=== PATIENT | male | born 1990 | race African-American/Black ===

== ENCOUNTER 2017-12-01 15:43 | Emergency (ER) | payer SELFPAY ==
[~2017-12-01] VITALS: Ht 172.7 cm; Wt 70.0 kg
[2017-12-01] MEDS ORDERED: KEPP500 PO (15:50)
[2017-12-01] MEDS ORDERED: SODIUM CHLORIDE 0.9% 1,000 ML IV ONE (19:32)
[2017-12-01] MEDS ORDERED: LEVETIRACETAM 500MG PREMIX 100 ML IV ONE (19:45)
[2017-12-01 20:39] LABS: BASOPHILS % 0.3 % (0.0-2.0); EOSINOPHILS % 0.1 % (0.0-5.0); HEMATOCRIT. 38.1 % (42.0-52.0); HEMOGLOBIN. 12.3 g/dL (14.0-18.0); LYMPHOCYTES % 8.5 % (20.0-50.0); MEAN CORPUSCULAR HEMOGLOBIN 24.5 pg (28.0-32.0); MEAN CORPUSCULAR VOLUME 76.1 fL (80.0-94.0); MEAN PLATELET VOLUME 9.3 fl (7.4-10.4); MONOCYTES % 7.4 % (2.0-8.0); NEUTROPHILS % 83.7 % (40.0-76.0); PLATELET 192 x1000/uL (130-400); RED BLOOD CELL COUNT 5.01 mill/uL (4.7-6.1); RED CELL DISTRIBUTION WIDTH 15.5 % (11.6-14.6)
[2017-12-01 20:45] LABS: CHLORIDE 108 mEq/L (98-107)
[2017-12-01 20:47] LABS: INR 1.1; PROTHROMBIN TIME 11.6 sec (9.4-11.6)
[2017-12-01 20:49] LABS: ETHANOL BLOOD < 10 mg/dL
[2017-12-01 20:52] LABS: AMMONIA 30 uMol/L (<32)
[2017-12-01 21:06] LABS: CREATINE KINASE 1557 IU/L (39-308)
[2017-12-01 21:14] LABS: CLARITY URINE CLEAR (CLEAR); COLOR URINE YELLOW (YELLOW); KETONES URINE 1+ (NEGATIVE); LEUKOCYTE ESTERASE URINE NEGATIVE (NEGATIVE); NITRITE URINE NEGATIVE (NEGATIVE); OCCULT BLOOD URINE TRACE (NEGATIVE); PROTEIN URINE 1+ (NEGATIVE); SPECIFIC GRAVITY URINE 1.017 (1.005-1.030); UROBILINOGEN URINE 0.2 E.U./dL (0.2-1.0)
[2017-12-01 21:26] LABS: *AMPHETAMINES SCREEN URINE NEGATIVE (NEGATIVE); *BARBITURATES SCREEN URINE NEGATIVE (NEGATIVE); *BENZODIAZEPINES SCREEN URINE NEGATIVE (NEGATIVE); *COCAINE SCREEN URINE NEGATIVE (NEGATIVE)
[2017-12-01 21:27] LABS: CANNABINOID URINE SCREEN PRESUMTIVE POSITIVE (NEGATIVE); METHADONE URINE SCREEN NEGATIVE (NEGATIVE); OPIATES URINE SCREEN NEGATIVE (NEGATIVE); PHENCYCLIDINE URINE SCREEN NEGATIVE (NEGATIVE)
[2017-12-01 22:30] VITALS: BP 116/61
== END 2017-12-01 22:31 | disposition home or self-care (01) ==
LOC: ER 16:15
DX: R56.9 Unspecified convulsions (principal); Z91.19 Patient's noncompliance with other medical treatment and regimen
CPT/HCPCS: 36415; 70450; 71045; 80053; 80305; 81003; 82140; 82550; 83690; 84443; 85025; 85610; 93005; 96365; 99285; G0482; J1953; J7030

== ENCOUNTER 2017-12-30 11:54 | Emergency (ER) | payer SELFPAY ==
[~2017-12-30] VITALS: Ht 180.3 cm; Wt 72.0 kg
[~2017-12-30 11:54] MED LIST: KEPP500 PO
[2017-12-30 14:38] LABS: CLARITY URINE CLEAR (CLEAR); COLOR URINE YELLOW (YELLOW); KETONES URINE NEGATIVE (NEGATIVE); LEUKOCYTE ESTERASE URINE NEGATIVE (NEGATIVE); NITRITE URINE NEGATIVE (NEGATIVE); OCCULT BLOOD URINE 1+ (NEGATIVE); PH URINE 5.5 (4.5-8.0); PROTEIN URINE 1+ (NEGATIVE); SPECIFIC GRAVITY URINE 1.014 (1.005-1.030); UROBILINOGEN URINE 0.2 E.U./dL (0.2-1.0)
[2017-12-30] MEDS ORDERED: LEVETIRACETAM 250MG TABLET PO ONE (14:45)
[2017-12-30] MEDS ORDERED: LEVETIRACETAM 500MG TABLET PO ONE (14:45)
[2017-12-30 14:52] LABS: *AMPHETAMINES SCREEN URINE NEGATIVE (NEGATIVE); *BARBITURATES SCREEN URINE NEGATIVE (NEGATIVE); *BENZODIAZEPINES SCREEN URINE NEGATIVE (NEGATIVE); *COCAINE SCREEN URINE NEGATIVE (NEGATIVE)
[2017-12-30 14:53] LABS: CANNABINOID URINE SCREEN PRESUMTIVE POSITIVE (NEGATIVE); METHADONE URINE SCREEN NEGATIVE (NEGATIVE); OPIATES URINE SCREEN NEGATIVE (NEGATIVE); PHENCYCLIDINE URINE SCREEN NEGATIVE (NEGATIVE)
[2017-12-30 15:11] LABS: BASOPHILS % 0.3 % (0.0-2.0); CHLORIDE 109 mEq/L (98-107); EOSINOPHILS % 0.8 % (0.0-5.0); HEMATOCRIT. 40.3 % (42.0-52.0); HEMOGLOBIN. 13.1 g/dL (14.0-18.0); LYMPHOCYTES % 11.5 % (20.0-50.0); MEAN CORPUSCULAR HEMOGLOBIN 24.7 pg (28.0-32.0); MEAN CORPUSCULAR VOLUME 75.6 fL (80.0-94.0); MONOCYTES % 9.6 % (2.0-8.0); NEUTROPHILS % 77.8 % (40.0-76.0); PLATELET 194 x1000/uL (130-400); RED BLOOD CELL COUNT 5.33 mill/uL (4.7-6.1); RED CELL DISTRIBUTION WIDTH 15.6 % (11.6-14.6)
[2017-12-30 15:15] LABS: ETHANOL BLOOD < 10 mg/dL
[2017-12-30 15:27] LABS: VALPROIC ACID < 3.0 ug/mL (50-100)
[2017-12-30 17:23] VITALS: BP 125/72
== END 2017-12-30 17:26 | disposition home or self-care (01) ==
LOC: ER 11:54
DX: R56.9 Unspecified convulsions (principal); Z91.14 Patient's other noncompliance with medication regimen; I10 Essential (primary) hypertension; E86.0 Dehydration; D64.9 Anemia, unspecified; D72.810 Lymphocytopenia; D72.821 Monocytosis (symptomatic); E87.8 Other disorders of electrolyte and fluid balance, not elsewhere classified; N17.0 Acute kidney failure with tubular necrosis; R80.9 Proteinuria, unspecified; R31.9 Hematuria, unspecified; R82.71 Bacteriuria; F12.10 Cannabis abuse, uncomplicated; D72.828 Other elevated white blood cell count; R77.9 Abnormality of plasma protein, unspecified; R89.2 Abnormal level of other drugs, medicaments and biological substances in specimens from other organs, systems and tissues
CPT/HCPCS: 36415; 80053; 80165; 80185; 80305; 81003; 82542; 83036; 85025; 99284; G0482